=== PATIENT | male | born 1980 | race Caucasian/White ===

== ENCOUNTER 2020-01-20 07:32 | Outpatient (CLI) | payer OTHER, SELFPAY ==
[2020-01-25 02:44] LABS: SARS-CoV-2 RNA Undetected (Undetected); SARS-CoV-2 Specimen Source Nasal
== END 2020-01-20 07:52 ==
PROVIDERS: Visit Provider Physician Assistant Medical
DX: Z20.828 Contact with and (suspected) exposure to other viral communicable diseases (principal)
CPT/HCPCS: U0003

== ENCOUNTER 2020-06-08 09:27 | Outpatient (CLI) | payer OTHER, SELFPAY ==
[2020-06-09 13:09] LABS: COVID-19 RT-PCR UVMMC Result Positive (Negative)
== END 2020-06-08 09:28 | disposition home or self-care (01) ==
PROVIDERS: Visit Provider Registered Nurse
DX: Z20.822 Contact with and (suspected) exposure to COVID-19 (principal); R05 Cough
CPT/HCPCS: U0003

== ENCOUNTER 2021-03-12 00:15 | Outpatient (CLI) | payer OTHER, SELFPAY ==
--- NOTE | 2021-03-12 08:00 | ETT_ITS ---
APPROVED REPORT Exam: Exercise Treadmill Patient Location: Out-Patient Room/Bed: Stress Nurse: Mendy Garcia RN Ordering Provider:PADMINI NICOLE, Contact Number: [phone] BMI: 33.05 Baseline Rhythm: Sinus Rhythm Indications: Hypertension Medical History Medical History: Hypertension, asthma, obesity Cardiac Medications: Lisinopril/hydrochlorothiazide Allergies: NKA Cardiac Risk Factors: Hypertension, asthma, obesity, familiy hx Previous Cardiac Procedures: None Pretest Chest Pain Characteristics: None Exercise History: Sedentary Physical Disabilities: None Lung Sounds: Clear to auscultation Heart Sounds: Irregular Stress Test Details Test: Exercise stress testing was performed using a Tj protocol. Rest Stress HR Resting HR Supine: 78 bpm Max Heart Rate (APMHR): 181 bpm Resting HR Standin bpm Target HR (85% APMHR): 153 bpm Max HR Achieved: 162 bpm % of APMHR: 89 Recovery HR: 98 bpm HR response to stress: Normal HR response to stress BP Resting BP Supine: 128/80 mmHg Resting BP Standin/80 mmHg Max BP: 146/84 mmHg Recovery BP: 132/72 mmHg BP response to stress: Normal blood pressure response to stress. ECG Resting ECG: Sinus Rhythm Ectopy: Occasional PVCs, burst of bigeminy Stress ECG: Sinus Tachycardia ST Change: No significant ST segment changes noted Arrhythmia: Occasional multifocal PVCs Recovery ECG: Sinus Rhythm Recovery ST Change: No significant ST segment changes noted Recovery Arrhythmia: Frequent mulitfocal PVCs, bursts of trigeminy Clinical Reason for Termination: Fatigue Stress Symptoms: Dyspnea, General Fatigue Exercise duration: 9 min36 sec Highest Stage Reached: Stage 4: 4.2 mph at 16% grade. Exercise capacity: 11.14 METs Roque Treadmill Score: 9.5 Rate Pressure Product: [id number] Stress ECG Conclusion 1. The resting electrocardiogram was within normal limits 2. The patient exercised on the Tj protocol and completed a workload of 11.14 METS, stopping due t o fatigue 3. Normal heart rate and blood pressure response to exercise. The patient achieved 89% of predicted heart rate for age 4. There was no electrocardiographic evidence of myocardial ischemia 5. Occasional PVCs were seen Roque Treadmill Score is 9.5 which is Low risk. Stress Test Summary STAGE Time (mins) Speed (mph) Grade (%) HR BP SYMPTOMS METS Supine 78 128/80 Standing 98 132/80 SpO2 98% 1 3 1.7 10 114 134/82 SpO2 97% 4.6 2 6 2.5 12 132 140/78 Mild SOB, SpO2 98% 7 3 9 3.4 14 150 142/82 Mild SOB, SpO2 96% 10.2 4 12 4.2 16 162 Mild SOB, SpO2 96% 12.9 1 min recovery 148 146/84 SOB resolving, SpO2 96% 3 min recovery 111 142/78 SOB resolving, SpO2 98% 6 min recovery 98 132/72 SOB resolved, SpO2 98%
== END 2021-03-12 00:35 ==
PROVIDERS: Visit Provider Registered Nurse
DX: I10 Essential (primary) hypertension (principal); I49.3 Ventricular premature depolarization; J45.909 Unspecified asthma, uncomplicated; E66.9 Obesity, unspecified; Z82.49 Family history of ischemic heart disease and other diseases of the circulatory system
CPT/HCPCS: 93017

== ENCOUNTER → 2022-02-18 02:34 | Outpatient (CLI) | payer OTHER, SELFPAY ==
[2022-02-18 10:25] LABS: CREATININE 1.2 mg/dL (0.70-1.30)
[2022-02-18] MEDS: Normal Saline - Diluent 50 ML VIAL IJ (11:00)
--- NOTE | 2022-02-18 11:00 | DI.CT_ITS ---
Exam(s) CT CHEST W EXAM: CT CHEST W CLINICAL HISTORY: MODERATE ASTHMA I45.40 NODULE R91.1 COUGH R05.9 HX COVID TECHNIQUE: Imaging Protocol: Axial computed tomography images with coronal and sagittal reformatted images were created and reviewed CONTRAST MATERIAL: Intravenous: Omnipaque 350 Contrast volume:70 ml. COMPARISON: CT CT CTA CHEST W AND/OR WO CONTRAST from 06/28/2020 CR XR CHEST 2VW (D) from 05/22/2021 FINDINGS: Tracheobronchial tree: No bronchiectasis or mucous plugging. Mediastinum and Lulu: No dominant adenopathy or fluid collection. Pulmonary parenchyma: Normal variant of azygos lobe. Previously noted ground-glass infiltrates have c leared. No significant residual scarring. Previously noted 5 millimeter nodule posterior left lowe r lobe no longer present. Pleura: No effusion or pneumothorax. Heart: The heart is not dilated. No coronary artery calcificatio ns are seen. Aorta: Thoracic aorta non-dilated. Upper abdomen: Hepatic steatosis. Lymph nodes: Within normal limits. Bones: Degenerative changes. Soft tissues: Unremarkable. IMPRESSION: Clearing of previously noted bilateral infiltrates. RADIATION DOSE DELIVERED: 805.18mGy.cm Total DLP DATA REPOSITORY: All CT scans at this facility are submitted to the National Radiology Data Registry (NRDR) Dose Index Registry (DIR) with the [employer] ([employer]). RADIATION OPTIMIZATION: All CT scans at this facility use at least one of these dose optimization te chniques: automated exposure control; mA and/or kV adjustment per patient size (includes targeted exa ms where dose is matched to clinical indication); or iterative reconstruction.
[2022-02-18] MEDS: Normal Saline Flush 10 ML SYR IVP (11:01)
[2022-02-18] MEDS: Omnipaque 350 MG/ML 500 ML BTL-Imaging package 70 ML IJ (11:01)
== END ==
PROVIDERS: Visit Provider Nurse Practitioner Family
DX: J45.40 Moderate persistent asthma, uncomplicated (principal); R91.1 Solitary pulmonary nodule; R05.8 Other specified cough; Z86.16 Personal history of COVID-19
CPT/HCPCS: 71260; 82565

== ENCOUNTER 2022-03-15 01:36 | Outpatient (CLI) | payer OTHER, SELFPAY ==
[2022-03-15] MEDS: Inhaler, Assist Device 1 EACH MC (11:07)
[2022-03-15] MEDS: Albuterol HFA 18 GM 200 PUFF INH IH (11:07)
--- NOTE | 2022-03-26 11:12 | W.PFT ---
Date of service: 03/15/22 Time of Service: 10:06 Pulmonary Function Test Result Requesting Provider Juani Cordero Indications: Asthma Interpretation Spirometry: There is no airflow limitation. There is no significant bronchodilator response. Lung Volumes: Normal lung volumes Diffusion Capacity: Normal diffusion Airway Pressure: Normal airways resistance Impression Normal pulmonary function testing Clinical Correlation therefore is recommended.
== END 2022-03-15 01:37 | disposition home or self-care (01) ==
LOC: RT 01:36
PROVIDERS: Visit Provider Nurse Practitioner Family
DX: J45.40 Moderate persistent asthma, uncomplicated (principal); R91.1 Solitary pulmonary nodule; R06.09 Other forms of dyspnea; R05.3 Chronic cough
CPT/HCPCS: 94060; 94726; 94729